=== PATIENT | male | born 1995 | race Caucasian/White ===

== ENCOUNTER 2021-01-16 01:42 | Emergency (ER) | payer OTHER ==
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
[2021-01-16 01:58] VITALS: BP 168/90
== END 2021-01-16 01:59 | disposition home or self-care (01) ==
LOC: ER FS 01:46
DX: S02.2XXA Fracture of nasal bones, initial encounter for closed fracture (principal); S01.112A Laceration without foreign body of left eyelid and periocular area, initial encounter; S01.81XA Laceration without foreign body of other part of head, initial encounter; Y04.8XXA Assault by other bodily force, initial encounter
CPT/HCPCS: 99283